=== PATIENT | male | born 1975 | race Caucasian/White ===

== ENCOUNTER → 2019-06-03 | Outpatient (CLI) | payer BC ==
--- NOTE | 2019-06-03 10:33 | RAD ---
EXAM DESCRIPTION: Shoulder,Left 2 or More Views CLINICAL HISTORY: PAIN IN LEFT SHOULDER COMPARISON: None. TECHNIQUE: 4 views left FINDINGS: Mild left AC joint arthritis is observed. The glenohumeral joint is normal. No evidence for fracture or dislocation is seen. IMPRESSION: Mild left AC joint arthritis is observed. Exam is otherwise unremarkable. Electronically signed by: Leonel Brown MD 06/03/2019 10:32 AM CDT
--- NOTE | 2019-06-03 10:33 | RAD ---
EXAM DESCRIPTION: Shoulder,Right 2 or More Views CLINICAL HISTORY: PAIN IN RIGHT SHOULDER COMPARISON: None. TECHNIQUE: 4 views right FINDINGS: I see no bone joint or soft tissue abnormality. IMPRESSION: Normal right shoulder. Electronically signed by: Leonel Brown MD 06/03/2019 10:31 AM CDT
== END ==
LOC: RAD 09:07
PROVIDERS: ATTEND Orthopaedic Surgery
DX: M19.012 Primary osteoarthritis, left shoulder (principal); M25.511 Pain in right shoulder